=== PATIENT | male | born 1975 | race Two or more races ===

== ENCOUNTER 2018-10-04 08:55 | Inpatient (IN) | payer OTHER ==
[~2018-10-04] VITALS: Ht 188 cm; Wt 144.2 kg
[2018-10-04 09:22] LABS: BASOPHILS # (AUTO) 0.2 /CMM (0.0-0.2); BASOPHILS % (AUTO) 1.3 % (0.0-2.0); EOSINOPHILS % (AUTO) 0.3 % (0.0-6.0); HEMATOCRIT 36 % (39-51); HEMOGLOBIN 11.4 g/dL (13.5-17.5); LYMPHOCYTES # (AUTO) 0.7 /CMM (0.8-4.8); LYMPHOCYTES % (AUTO) 5.6 % (20.0-44.0); MEAN CORPUSCULAR HGB CONC 32 g/dl (31.0-36.0); MEAN CORPUSCULAR VOLUME 74 fL (80-96); MONOCYTES # (AUTO) 0.9 /CMM (0.1-1.30); MONOCYTES % (AUTO) 7.1 % (2.0-12.0); NEUTROPHILS # (AUTO) 10.4 /CMM (1.8-8.9); NEUTROPHILS % (AUTO) 85.7 % (43.0-81.0); PLATELET COUNT (AUTO) 405 /CMM (150-450); RED BLOOD CELL COUNT(AUTO) 4.84 MIL/uL (4.5-6.0); WHITE BLOOD COUNT (AUTO) 12.1 K/uL (4.3-11.0)
--- NOTE | 2018-10-04 09:34 | NUR ---
PT BROUGHT IN BY PARAMEDICS FOR WEAKNES AND RIGHT LEG SWELLING. PT HAS STAGE 4 SCRAL ULCER AND IS PARALYZED FROM WAIST DOWN. PT ALERT WITH ORIENTATION X 4/
[2018-10-04 09:44] LABS: CALCIUM, SERUM 8.9 mg/dL (8.5-10.1); CARBON DIOXIDE 27 mmol/L (21-32); CHLORIDE 94 mmol/L (98-107); CREATININE 0.8 mg/dL (0.6-1.3); GLUCOSE 112 mg/dL (74-106); POTASSIUM 3.5 mmol/L (3.5-5.1); SODIUM SERUM 129 mmol/L (136-145); UREA NITROGEN, BLOOD 10 mg/dL (7-18)
[2018-10-04 09:49] LABS: ALANINE AMINOTRANSFERASE 25 U/L (12-78); ALBUMIN 2.7 g/dL (3.4-5.0); ALKALINE PHOSPHATASE 147 U/L (46-116); ASPARTATE AMINOTRANSFERASE 27 U/L (15-37); BILIRUBIN,DIRECT 0.4 mg/dL (0.0-0.2); BILIRUBIN,TOTAL 0.9 mg/dL (0.2-1.0); TOTAL PROTEIN, SERUM 8.9 g/dL (6.4-8.2)
[2018-10-04 10:15] LABS: BAND % (MANUAL) 1 % (0.0-5.0); LYMPHOCYTES % (MANUAL) 6 % (16-48); MONOCYTES % (MANUAL) 3 % (0-11.0); NEUTROPHILS % (MANUAL) 90 (42-76)
[2018-10-04] MEDS ORDERED: PIPERACILLIN /TAZOBACTAM 3.375 G in IV D5W 50 ML IV ONE (11:00)
[2018-10-04] MEDS ORDERED: VANCOMYCIN 1 GM in IV D5W 250 ML IV ONE (11:00)
[2018-10-04] MEDS ORDERED: IV NS 0.9% 1,000 ML BAG IV ONE (11:00)
[2018-10-04] MEDS ORDERED: MAGNESIUM HYDROXIDE 30 ML UDC PO PRN (11:30)
[2018-10-04] MEDS ORDERED: Z GUARD REMEDY 2 OZ OINT TP PRN (11:30)
[2018-10-04] MEDS ORDERED: ZOLPIDEM TARTRATE 5 MG TABLET PO PRN (11:30)
[2018-10-04] MEDS ORDERED: MAG HYDROX/AL HYDROX/SIMETH 30 ML UDC PO PRN (11:30)
[2018-10-04] MEDS ORDERED: ACETAMINOPHEN 325 MG TABLET PO PRN (11:30)
[2018-10-04] MEDS ORDERED: ONDANSETRON HCL/PF 4 MG/2 ML VIAL IVP PRN (11:30)
--- NOTE | 2018-10-04 11:42 | NUR ---
URINE SAMPLE SENT TO [facility] BEING DONE
[2018-10-04 11:50] LABS: APPEARANCE,URINE Turbid (CLEAR); BILIRUBIN,URINE SMALL (NEGATIVE); BLOOD, URINE Moderate Ery/uL (NEGATIVE); COLOR,URINE Dark (YELLOW); KETONES,URINE 15 (NEGATIVE); LEUKOCYTE ESTERASE ,URINE Large (NEGATIVE); NITRITE, URINE Positive (NEGATIVE); PROTEIN,URINE >=300 mg/dl (NEGATIVE); UGLUCOSE Negative (NEGATIVE)
[2018-10-04 12:03] LABS: BACTERIA,URINE 3+ /HPF (None Seen); WBC,URINE TOO NUMEROUS TO COUN /HPF (0-3)
[2018-10-04 12:04] LABS: SQUAMOUS EPITHELIAL CELL,UR Rare /HPF (None Seen)
--- NOTE | 2018-10-04 12:04 | NUR ---
REPORT CALLED TO [facility] ON 3RD FLOOR PT GOING TO ROOM 322-1 ADMITTING MD COLEY FOR CELLULITIS
[2018-10-04] MEDS ORDERED: FEE PK DOSING 1 MIN EA MC ONE (12:18)
[2018-10-04 12:40] VITALS: BP 146/78
[2018-10-04] MEDS: IV NS 0.9% 1,000 ML IV PRN (13:08)
[2018-10-04] MEDS: ENOXAPARIN SODIUM 40 MG/0.4 ML DISP.SYRIN SQ SCH (13:21)
[2018-10-04] MEDS: VANCOMYCIN 1.25 GM in IV NS 0.9% 500 ML IV SCH ×2 (14:09→21:04)
--- NOTE | 2018-10-04 14:38 | NUR ---
ELECTRIC MULE DRIVER ADMITTING NOTES PATIENT ADMITTED TO UNIT VIA [facility] @ 1230. A/O X4. ABLE TO MAKE NEEDS KNOWN, DENIES PAIN OR DISCOMFORTS VOICED AT THIS TIME. PT ABLE TO SLIDE HIMSELF FROM GURNEY TO BED. PT WITH DIAGNOSIS OF CELLULITIS TO B/L LOWER EXTREMITIES. PT ORIENTED TO UNIT, ROOM AND STAFF. V/S TAKEN AND RECORDED. HEAD TO TOE ASSESSMENT DONE. PT WITH LAC G#18 INTACT AND PATENT. ABDOMEN SOFT, NON-TENDER AND NON DISTENDED WITH POSITIVE BOWEL SOUNDS. LUNGS IS CLEAR ON AUSCULTATION. PHOTOS OF SKIN ISSUES TAKEN AND FILED ON CHART. PT IS PARALYZED FROM WAIST DOWN. PT PLACED ON TELEMONITORING WITH READINGS SHOWING SINUS TACHYCARDIA WITH HR B/W 100-115, NO C/O CARDIAC DISTRESS VOICED. SAFETY MEASURES INITIATED. BED PLACED IN LOW LOCKED POSITION WITH SIDE RAILS UP X2. CALL LIGHT PLACED WITHIN EASY REACH OF PT. WILL CONTINUE TO MONITOR AND ASSES PT. Addendum: 10/04/18 at 1846 by GRACIA GARDNER RN ADDENDUM: PT WITH MORALES CATHETER IN PLACE AND PATENT , DRAINING ADEQUATE CLEAR YELLOW URINE TO BEDSIDE URINARY BAG.
[2018-10-04 16:00] VITALS: BP 142/78
[2018-10-04] MEDS: PIPERACILLIN /TAZOBACTAM 3.375 G in IV D5W 50 ML IV SCH ×2 (16:59→23:17)
--- NOTE | 2018-10-04 18:08 | NUR ---
RN NOTES RIGHT FOOT WOUND SPECIMEN COLLECTED FOR CULTURE AND CALLED LAB FOR SUPERVISOR CD AREA.
--- NOTE | 2018-10-04 18:51 | NUR ---
NEUROSURGICAL PHYSICIAN ASSISTANT CLOSING NOTES PT IN BED RESTING AT MODERATE HIGH BACKREST POSITION. A/O X4. ABLE TO VERBALIZED NEEDS. ON ROOM AIR, BREATHING EVEN AND UNLABORED. TELEMONITORING SHOWS SINUS TACH WITH HR B/W 100-115. DRESSING TO B/L FOOT C/D/I. IV ACCESS ON LAC PATENT AND INTACT, IVF INFUSING ORDERED, NO S/S OF INFILTRATIONS NOTED. MORALES IN PLACE, PATENT AND DRAINING TO GRAVITY. ALL NEEDS AND CARE AATENDED WELL. KEPT BED IN LOW/LOCKED POSITION WITH CALL LIGHT IN REACH. BILATERAL UPPER SIDE RAILS IN PLACE. WILL ENDORSE TO CORONER TRANSPORT TECHNICIAN NURSE FOR MARY.
[2018-10-04 20:00] VITALS: BP 125/55
[2018-10-04] MEDS: HYDROCODONE/APAP 10/325MG 1 EA TABLET PO PRN (20:30)
[2018-10-05] VITALS: BP 130/80
[2018-10-05 04:00] VITALS: BP 119/71
[2018-10-05] MEDS: PIPERACILLIN /TAZOBACTAM 3.375 G in IV D5W 50 ML IV SCH ×4 (05:51→21:50)
[2018-10-05] MEDS: VANCOMYCIN 1.25 GM in IV NS 0.9% 500 ML IV SCH (05:51)
--- NOTE | 2018-10-05 06:50 | NUR ---
UPHOLSTERY SEWER NOTES AWAKE & RESPONSIVE. NOT IN ANY DISTRESS. NO SOB NOTED. DENIES ANY PAIN OR DISCOMFORT AT THIS TIME. ON TELE SR @ 100 WITH IVF INFUSING WELL. AM CARE DONE. MONITORED ACCORDINGLY. CALL LIGHT WITHIN REACH. BED IN LOWEST POSITION. SR UP X2 ON FOR SAFETY. WILL ENDORSE TO NEXT SHIFT.
--- NOTE | 2018-10-05 07:10 | NUR ---
KENNEL TECHNICIAN. PT TELE SINUS 93. PT A&0X3, AWAKE AND RESTING IN BED. PT TOLERATING ROOM AIR WITHOUT DISTRESS. PT DENIES PAIN. PT WITH IVC AT L AC INTACT AND OPERATIONAL WITH IVF/IVAB PER RX. PT ASSISTED WITH REPOSITIONING. PT WITH BI LAT LOWER EXT DRESSINGS CLEAN AND INTACT, R LOWER LEG WITH EDEMA +2, FOOT +3 WARM TO THE TOUCH. LEFT LEG WITH EDEMA +1. PT BED IN LOWEST LOCKED POSITION WITH HANDRAISX2 AND CALL ANTOINE AND BELONGINGS WITHIN REACH. PT BRIEFED ON TODAY'S POC AND IS WITHOUT CONCERN OR COMPLAINT AT THIS TIME.
[2018-10-05 07:17] LABS: BASOPHILS % (AUTO) 0.3 % (0.0-2.0); EOSINOPHILS % (AUTO) 1.1 % (0.0-6.0); HEMATOCRIT 28 % (39-51); LYMPHOCYTES # (AUTO) 0.8 /CMM (0.8-4.8); LYMPHOCYTES % (AUTO) 10.7 % (20.0-44.0); MEAN CORPUSCULAR HGB CONC 33 g/dl (31.0-36.0); MEAN CORPUSCULAR VOLUME 73 fL (80-96); MONOCYTES # (AUTO) 0.7 /CMM (0.1-1.30); MONOCYTES % (AUTO) 9.7 % (2.0-12.0); NEUTROPHILS # (AUTO) 5.6 /CMM (1.8-8.9); NEUTROPHILS % (AUTO) 78.2 % (43.0-81.0); PLATELET COUNT (AUTO) 342 /CMM (150-450); RED BLOOD CELL COUNT(AUTO) 3.75 MIL/uL (4.5-6.0); WHITE BLOOD COUNT (AUTO) 7.1 K/uL (4.3-11.0)
[2018-10-05 07:26] LABS: CALCIUM, SERUM 7.8 mg/dL (8.5-10.1); CREATININE 0.7 mg/dL (0.6-1.3); MAGNESIUM 1.5 mg/dL (1.8-2.4); PHOSPHORUS 3.2 mg/dL (2.5-4.9); POTASSIUM 3.3 mmol/L (3.5-5.1)
[2018-10-05 08:00] VITALS: BP 110/55
[2018-10-05] MEDS: ENOXAPARIN SODIUM 40 MG/0.4 ML DISP.SYRIN SQ SCH (08:25)
[2018-10-05] MEDS: IV NS 0.9% 1,000 ML IV PRN (08:51)
[2018-10-05 09:11] LABS: BAND % (MANUAL) 3 % (0.0-5.0); LYMPHOCYTES % (MANUAL) 14 % (16-48); MONOCYTES % (MANUAL) 11 % (0-11.0); NEUTROPHILS % (MANUAL) 72 (42-76)
[2018-10-05] MEDS ORDERED: Magnesium 1GM/D5W 100ML PREMIX PIGGYBACK IV ONE (09:30)
[2018-10-05] MEDS ORDERED: POTASSIUM CHLORIDE 20 MEQ TAB.PRT.SR PO SCH (10:00)
[2018-10-05] MEDS ORDERED: MGSO4/D5W 100 ML IV SCH (10:00)
--- NOTE | 2018-10-05 13:30 | NUR ---
OS AT BEDSIDE FOR BI.LAT FEET DEBRIDEMENT . WOUND CARE COMPLETED BY .
[2018-10-05 16:00] VITALS: BP 102/59
[2018-10-05] MEDS: VANCOMYCIN 1.25 GM in IV D5W 500 ML IV SCH (16:26)
[2018-10-05] MEDS ORDERED: AMLO5TAB9 PO (16:55)
[2018-10-05] MEDS ORDERED: FERR325T23 PO (16:55)
[2018-10-05] MEDS ORDERED: LISI-603 PO (16:55)
[2018-10-05] MEDS ORDERED: BACL20TA PO (16:55)
[2018-10-05] MEDS ORDERED: GABA-534 PO (16:55)
[2018-10-05] MEDS: HYDROCODONE/APAP 5/325MG 1 EACH TABLET PO PRN (17:01)
--- NOTE | 2018-10-05 18:26 | NUR ---
MSRN. PT A&0X4, USING PHONE IN BED. PT TOLERATING ROOM AIR WITHOUT DISTRESS. PT REPORTS ADEQUATE PAIN MANAGEMENT AT THIS TIME. PT WITH IVC AT L AC INTACT AND OPERATIONAL WITH IVAB PER RX. PT WITH BI LAT LOWER EXT DRESSINGS CLEAN AND INTACT. PT BED IN LOWEST LOCKED POSITION WITH HANDRAILSX2 AND CALL ANTOINE AND BELONGINGS WITHIN REACH. ALL DAY NURSE DUTIES ATTENDED TO AND PT IS WITHOUT FURTHER COMPLAINT AT THIS TIME. WILL ENDORSE TO NIGHT NURSE AT BEDSIDE FOR MARY.
--- NOTE | 2018-10-05 19:53 | NUR ---
MS/RN OPENING NOTES RECEIVED PATIENT IN BED, RESTING COMFORTABLY IN BED, ALERT, ORIENTED X4, DENIES PAIN, CALM AND COOPERATIVE TO CARE, REQUIRE ASSISTANCE IN ADLS PATIENT CAN NOT FEEL SENSATION FROM WAIST DOWN, SKIN WARM TO TOUCH, HAD ONE BM REPORTED. WITH MULTIPLE SKIN ISSUES CELLULITIS ON BLE, TAKES REGULAR DIET, ON IV ABT THERTAPHY. DEBRIDEMENT DONE BLE WILL MONITOR. RECEIVED ENDORSEMENT FROM AM RN FOR MARY. IV GAUGE ON LEFT ACWILL CONTINUE TO MONITOR. BED LOCKED, CALL LIGHTS WITHIN REACH.
[2018-10-05 19:56] VITALS: BP 128/71
[2018-10-05 19:57] VITALS: BP 128/71
[2018-10-06] MEDS: VANCOMYCIN 1.25 GM in IV D5W 500 ML IV SCH ×3 (00:04→15:34)
[2018-10-06] MEDS: HYDROCODONE/APAP 10/325MG 1 EA TABLET PO PRN ×2 (00:11→15:57)
--- NOTE | 2018-10-06 00:15 | NUR ---
MS/RN NOTES PATIENT OBSERVED WITH FACIAL GRIMACE, MOANING, AND REPORTED PAIN IN LOWER EXTREMITIES, PAIN MEDICATION NORCO 10-325 MG PO GIVEN BY MOUTH, WILL MONITOR RELIEF.
--- NOTE | 2018-10-06 01:00 | NUR ---
RFA GAUGE 20 IV INSERTED, PATIENT TOLERATED .
[2018-10-06] MEDS: PIPERACILLIN /TAZOBACTAM 3.375 G in IV D5W 50 ML IV SCH ×4 (04:00→23:20)
--- NOTE | 2018-10-06 06:38 | NUR ---
MS/RN NOTES PATIENT SLEPT INTERMITENTLY, COOPERATIVE, PARTICIPATIVE TO CARE, RESPIRATIONS EVEN AND UNLABORED, PAIN CONTROLLED, REPOSITIONED FOR COMFORT, IN ON RFA GAUGE 20 PATENT, NO S/S OF ADVERSE CHANGES NOTED, CALM AND COOPERATIVE. BED LOCKED, ABLE TO DRINK ADEQUATE FLUID ORALLY. ON IV ANTIBIOTIC FOR CELLULITIS. BED LOCKED. CALL LIGHTS WITHIN REACH. WILL MONITOR.
[2018-10-06 07:25] LABS: CALCIUM, SERUM 7.9 mg/dL (8.5-10.1); CREATININE 0.7 mg/dL (0.6-1.3); POTASSIUM 3.9 mmol/L (3.5-5.1)
[2018-10-06 08:00] VITALS: BP 119/59
[2018-10-06] MEDS: ENOXAPARIN SODIUM 40 MG/0.4 ML DISP.SYRIN SQ SCH (09:00)
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
--- NOTE | 2018-10-06 14:39 | NUR ---
Social service consult requested by Og Hooper for homelessness. Pt is a 42-year-old male admitted to [facility] due to multiple wounds and bilateral lower extremity cellulitis per H&P. Pt has a history of amphetamine use and tobacco use. Pt reports no emergency contacts at this time. Pt reports he has been living on the streets however would not report for how long, per consult pt reported being homeless for the last four months. Pt is alert and oriented x4. Sw discussed [facility] shelters, pt-accepted resource. Sw spoke with pt regarding his drug use, pt reports to using meth and smoking cigarettes, social work offered pt substance abuse referrals, pt accepted. When discussing possible discharge in the future pt reported he is not sure. Pt accepted both [facility] retirement and substance abuse resources, health social work professor left paperwork with pt at bedside. Social work will remain available if needed.
[2018-10-06] MEDS: IV NS 0.9% 1,000 ML IV PRN (15:34)
[2018-10-06] MEDS: DAKINS QUARTER STRENGTH (0.125%) 480 ML BOTTLE TOP SCH (15:34)
[2018-10-06 15:55] VITALS: BP 121/70
--- NOTE | 2018-10-06 19:10 | NUR ---
PATIENT A/OX4, RESPIRATIONS EVEN AND UNLABORED, PAIN MEDS GIVEN PRIOR WOUND CARE, REPOSITIONED FOR COMFORT, IN ON RFA GAUGE 20 PATENT. BED LOCKED,LOWEST POSITION. SIDE RAILS UPX2.BED LOCKED. CALL LIGHTS WITHIN REACH . WILL ENDORSE TO NEXT SHIFT
--- NOTE | 2018-10-06 19:25 | NUR ---
MS/RN NOTES RECEIVED PT. LYING IN BED. PT. IS AWAKE, ALERT AND ORIENTED X4. BREATHING EVEN AND UNLABORED ON ROOM AIR. NO SOB, RESPIRATORY DISTRESS OR COMPLAINTS OF PAIN NOTED AT THIS TIME. PT. WITH RIGHT FOREARM 20 GAUGE PERIPHERAL IV PRESENT, PATENT AND INTACT ADMINISTERING TO PT. NS @ 75ML/HR. PT. WITH MORALES CATHETER PRESENT, PATENT AND INTACT DRAINING CLEAR PUSHPA URINE. PER DAYSHIFT NURSE PT. IS S/P BILATERAL LOWER EXTREMITY DEBRIDEMENT. PT. WITH BILATERAL LOWER EXTREMITY POST OP DRESSING PRESENT, CLEAN, DRY AND INTACT. NO BLEEDING OR DRAINAGE NOTED. PT. BILATERAL LOWER EXTREMITIES ELEVATED ON PILLOWS. BED LOCKED AND IN LOWEST POSITION, SIDE RAILS UP X2, CALL LIGHT WITHIN REACH, WILL CONTINUE TO MONITOR.
[2018-10-06 20:00] VITALS: BP 129/77
[2018-10-07] MEDS: VANCOMYCIN 1.25 GM in IV D5W 500 ML IV SCH ×3 (00:38→16:12)
[2018-10-07] MEDS: PIPERACILLIN /TAZOBACTAM 3.375 G in IV D5W 50 ML IV SCH ×2 (05:50→11:39)
[2018-10-07] MEDS: HYDROCODONE/APAP 5/325MG 1 EACH TABLET PO PRN ×2 (06:06→21:26)
--- NOTE | 2018-10-07 06:53 | NUR ---
MS/RN NOTES PT. IS LYING IN BED RESTING. BREATHING EVEN AND UNLABORED ON ROOM AIR. NO SOB, RESPIRATORY DISTRESS OR COMPLAINTS OF PAIN NOTED AT THIS TIME. PT. WITH RIGHT FOREARM 20 GAUGE PERIPHERAL IV PRESENT, PATENT AND INTACT ADMINISTERING TO PT. NS @ 75ML/HR. PT. WITH MORALES CATHETER PRESENT, PATENT AND INTACT DRAINING CLEAR PUSHPA URINE. PT. WITH BILATERAL LOWER EXTREMITY POST OP DRESSING PRESENT, CLEAN, DRY AND INTACT. NO BLEEDING OR DRAINAGE NOTED. PT. BILATERAL LOWER EXTREMITIES ELEVATED ON PILLOWS. ALL PT. NEEDS MET. PT. REFUSING TO BE TURNED OR REPOSITIONED AT THIS TIME. BED LOCKED AND IN LOWEST POSITION, SIDE RAILS UP X2, CALL LIGHT WITHIN REACH, WILL ENDORSE TO DAYSHIFT NURSE FOR CONTINUITY OF CARE.
[2018-10-07 08:00] LABS: CALCIUM, SERUM 7.9 mg/dL (8.5-10.1); CREATININE 0.6 mg/dL (0.6-1.3); POTASSIUM 3.5 mmol/L (3.5-5.1)
[2018-10-07] MEDS: ENOXAPARIN SODIUM 40 MG/0.4 ML DISP.SYRIN SQ SCH (08:57)
[2018-10-07] MEDS: DAKINS QUARTER STRENGTH (0.125%) 480 ML BOTTLE TOP SCH (08:58)
[2018-10-07] MEDS: IV NS 0.9% 1,000 ML IV PRN (15:14)
[2018-10-07 16:00] VITALS: BP 129/76
--- NOTE | 2018-10-07 17:09 | NUR ---
DR. GUERRERO IN,DR. CROWELL'S TUBE SIZER AND CUTTER OPERATOR WELL MARCELLE FINE NURSE.
[2018-10-07] MEDS: LACTOBACILLUS RHAMNOSUS GG 1 EACH CAP.SPRINK PO SCH (18:20)
[2018-10-07] MEDS: LEVOFLOXACIN (750 MG) 750 MG TABLET PO SCH (18:20)
[2018-10-07] MEDS: CEFEPIME 1 GM in IV D5W 50 ML IV SCH (20:09)
[2018-10-07 23:27] VITALS: BP 131/78
[2018-10-08] MEDS: IV NS 0.9% 1,000 ML IV PRN ×2 (06:18→23:01)
[2018-10-08] MEDS: DAKINS QUARTER STRENGTH (0.125%) 480 ML BOTTLE TOP SCH (06:19)
--- NOTE | 2018-10-08 07:45 | NUR ---
ms contracts intern closing notes pt back to rest after morning care done as well his wound care . stable asher the night and slept well. all due meds given and all needs met. ivf still infusing on his right forearm. no redness noted. kept him warm and comfortable at all times. isolation precaution implemented and onbserved. endorse.
[2018-10-08 08:00] VITALS: BP 112/58
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
[2018-10-08] MEDS: CEFEPIME 1 GM in IV D5W 50 ML IV SCH ×2 (08:40→20:29)
[2018-10-08] MEDS: LACTOBACILLUS RHAMNOSUS GG 1 EACH CAP.SPRINK PO SCH ×2 (08:42→17:46)
[2018-10-08] MEDS: ENOXAPARIN SODIUM 40 MG/0.4 ML DISP.SYRIN SQ SCH (08:46)
[2018-10-08] MEDS ORDERED: LEVO750T21 PO (08:47)
[2018-10-08] MEDS ORDERED: CEFE1PIG3 IV (08:47)
[2018-10-08 09:09] LABS: BASOPHILS % (AUTO) 0.8 % (0.0-2.0); EOSINOPHILS % (AUTO) 6.6 % (0.0-6.0); HEMATOCRIT 31 % (39-51); HEMOGLOBIN 9.9 g/dL (13.5-17.5); LYMPHOCYTES # (AUTO) 1.1 /CMM (0.8-4.8); LYMPHOCYTES % (AUTO) 27.8 % (20.0-44.0); MEAN CORPUSCULAR HGB CONC 32 g/dl (31.0-36.0); MEAN CORPUSCULAR VOLUME 74 fL (80-96); MONOCYTES # (AUTO) 0.2 /CMM (0.1-1.30); MONOCYTES % (AUTO) 4.9 % (2.0-12.0); NEUTROPHILS # (AUTO) 2.3 /CMM (1.8-8.9); NEUTROPHILS % (AUTO) 59.9 % (43.0-81.0); PLATELET COUNT (AUTO) 522 /CMM (150-450); RED BLOOD CELL COUNT(AUTO) 4.14 MIL/uL (4.5-6.0); WHITE BLOOD COUNT (AUTO) 3.9 K/uL (4.3-11.0)
[2018-10-08 09:18] LABS: CALCIUM, SERUM 8.6 mg/dL (8.5-10.1); CREATININE 0.8 mg/dL (0.6-1.3); POTASSIUM 3.8 mmol/L (3.5-5.1)
--- NOTE | 2018-10-08 10:00 | NUR ---
RN NOTES PATIENT GOING TO D/C SNF PER MD ORDER.
--- NOTE | 2018-10-08 13:00 | NUR ---
RN NOTES BUTTOCK WOUND DEBRIDEMENT DONE BY TAMMY GATES. CALL LIGHT WITHIN TO REACH. NEEDS ATTENED AND RENDERED, CONTINUED MONITORING.
--- NOTE | 2018-10-08 14:11 | NUR ---
SW spoke to nurse case manager Consuelo Mccrary regarding pt's discharge plan. Per Consuelo Mccrary pt. is accepted to [facility] located at [address] [place] [address] [place] [address] .
[2018-10-08 16:07] VITALS: BP 146/79
[2018-10-08] MEDS: LEVOFLOXACIN (750 MG) 750 MG TABLET PO SCH (17:46)
--- NOTE | 2018-10-08 18:30 | NUR ---
RN NOTES PATIENT STABLE, CALLED SNF FOR DISCHARGE REPORT BUT NOT BED AVAILABLE . PER SNF CHARGE NURSE WILL NOTIFY WHEN BED AVAILABLE. PATIENT RESTING IN THE BED, REFUSED PAIN . PATIENT TURN AND REPOSTION SELF IN THE BED. ENDORSED ONCOMING NURSE FOR PLAN OF CARE.
--- NOTE | 2018-10-08 19:49 | NUR ---
RN MS OPENING NOTES RECEIVED PATIENT IN BED AWAKE, ALERT AND ORIENTED X4, VERBALLY RESPONSIVE, ABLE TO MAKE NEEDS KNOWN. BREATHING EVEN AND UNLABORED. NO SOB NOTED. TOLERATING ROOM AIR. DENIES ANY PAIN OR DISCOMFORT . NO FACIAL GRIMACING. IV ON RIGHT FOREARM INTACT AND PATENT. SKIN DRY AND WARM TO TOUCH. AFEBRILE. ALL OTHER NEEDS ATTENDED TO. SAFETY MEASURES IN PLACE. CALL LIGHT WITHIN REACH. WILL CONTINUE TO MONITOR. ANTICIPATING DISCHARGE TO SNF.
[2018-10-08 20:00] VITALS: BP 146/90
[2018-10-09] MEDS: HYDROCODONE/APAP 5/325MG 1 EACH TABLET PO PRN (00:18)
--- NOTE | 2018-10-09 01:20 | NUR ---
RN MS NOTES CALLED [facility] TO CHECK IF BARIATRIC BED WAS DELIVERED. PER OPAL LANDON, THE BED HAS NOT ARRIVED YET.
--- NOTE | 2018-10-09 06:53 | NUR ---
RN MS CLOSING NOTES PATIENT RESTING IN BED. NO ACUTE CHANGES THROUGHOUT SHIFT. PATIENT UNABLE TO GO TO SNF DUE TO BARIATRIC BED NOT AVAILABLE. BREATHING EVEN AND UNLABORED. NO SOB NOTED. TOLERATING ROOM AIR. DENIES ANY PAIN OR DISCOMFORT . NO FACIAL GRIMACING. IV ON RIGHT FOREARM INTACT AND PATENT WITH NS RUNNING AT 75ML/HR. SKIN DRY AND WARM TO TOUCH. AFEBRILE. DRESSINGS CHANGED. ALL OTHER NEEDS ATTENDED TO. SAFETY MEASURES IN PLACE. CALL LIGHT WITHIN REACH. WILL ENDORSE TO ONCOMING NURSE FOR MARY. .
--- NOTE | 2018-10-09 07:30 | NUR ---
MS RN Opening Notes Patient asleep, resting in bed. Semi-Fowlers position. Alert and oriented x4, able to make needs known. No complaints of pain at this time. Respirations even and unlabored on room air, no acute distress noted. Peripheral IV to the right forearm 20 gauge, intact, patent and infusing fluids as ordered. Peña catheter in place, intact, patent and draining clear, yellow urine. Dressings to both lower extremities noted in place, clean, dry and intact. Updated patient on current plan of care and safety measures. Safety and fall precautions in place: bed in lowest and locked position, side rails up x2, bed alarm on, call light and personal possessions within reach. Will continue to monitor and intervene as needed.
[2018-10-09 08:00] VITALS: BP 135/78
[2018-10-09 08:24] LABS: CALCIUM, SERUM 8.7 mg/dL (8.5-10.1); CREATININE 0.7 mg/dL (0.6-1.3); POTASSIUM 4.2 mmol/L (3.5-5.1)
[2018-10-09] MEDS: ENOXAPARIN SODIUM 40 MG/0.4 ML DISP.SYRIN SQ SCH (08:47)
[2018-10-09] MEDS: LACTOBACILLUS RHAMNOSUS GG 1 EACH CAP.SPRINK PO SCH ×2 (08:48→17:37)
[2018-10-09] MEDS: CEFEPIME 1 GM in IV D5W 50 ML IV SCH (08:48)
[2018-10-09] MEDS: DAKINS QUARTER STRENGTH (0.125%) 480 ML BOTTLE TOP SCH (08:49)
[2018-10-09 14:00] VITALS: BP 161/98
--- NOTE | 2018-10-09 16:00 | NUR ---
Called report to [facility] . RN Rn Patient Care Lexie. Patient assigned for 1900 pick-up from [facility]. Bariatric bed to be available at 1900, per CM arranging with Herb (from facility). Will endorse care to EMT or retail shift leader RN for continuity of care.
--- NOTE | 2018-10-09 17:00 | NUR ---
Wound care completed on sacral wound as ordered. Dressing clean, dry and intact to site. Discharge photos of sacral wound completed by CASE Peña yesterday in anticipation of discharge. Noted. For bilateral lower extremities, photos of ulcerations and skin taken yesterday (10/08/18) ACSE Peña in anticipation of discharge to facility. Dressing changed as ordered on 10/08/18. Per ordered from Dr. Fink's notes and orders, multi layer compression dressing to be changed every 72 hours. Therefore, no follow-up photos of sites noted for 10/09/18. Dressing currently clean, dry and intact. Will endorse care and instructions to SNF RN and receiving facility.
[2018-10-09] MEDS: LEVOFLOXACIN (750 MG) 750 MG TABLET PO SCH (17:37)
--- NOTE | 2018-10-09 18:59 | NUR ---
Preparing patient for discharge. Patient dressed in gown (no clothing available) with personal belongings. Peña catheter emptied. Peripherial IV to the right wrist 22 gauge dislodged. Catheter tip intact. No redness, bleeding or swelling of the site noted. Will update EMT's on access site changes for patient.
--- NOTE | 2018-10-09 19:22 | NUR ---
MS RN Closing Notes Patient awake, resting in bed. Semi-Fowlers position. Alert and oriented x4, able to make needs known. No complaints of pain at this time. Respirations even and unlabored on room air, no acute distress noted. Peripheral IV to the right wrist 22 gauge removed for discharge. Peña catheter in place, intact, patent and draining clear, yellow urine. Dressings to both lower extremities noted in place, clean, dry and intact. Dressing to sacrum (left) clean, dry and intact. Patient prepped for discharge. All forms and instructions signed. Copies in chart. Skin assessment completed, photos in chart. Updated patient on current plan of care and safety measures. Safety and fall precautions in place: bed in lowest and locked position, side rails up x2, bed alarm on, call light and personal possessions within reach. Will endorse care to CASE Reagan to discharge patient to SNF. Pick-up time for patient 1900.
[2018-10-09 20:31] VITALS: BP 142/88
--- NOTE | 2018-10-09 20:39 | NUR ---
DISCHARGED Patient has been cleared for d/c by MD. Transport arrived, patient left via ambulance in stable condition. Personal belongings send with the patient upon discharged.
== END 2018-10-09 20:39 | DRG 710 ==
LOC: ER 08:59 → TELE 11:59 → MED 10-05 10:30
PROVIDERS: ADMIT Nurse Practitioner Acute Care; ATTEND Family Medicine
PROC: 0JBQ0ZZ Excision of Right Foot Subcutaneous Tissue and Fascia, Open Approach (ICD-10-PCS; principal; 2018-10-05)
PROC: 0JBR0ZZ Excision of Left Foot Subcutaneous Tissue and Fascia, Open Approach (ICD-10-PCS; principal; 2018-10-05)
PROC: 0KBP0ZZ Excision of Left Hip Muscle, Open Approach (ICD-10-PCS; 2018-10-08)
DX: A41.9 Sepsis, unspecified organism (principal); L89.324 Pressure ulcer of left buttock, stage 4; E46 Unspecified protein-calorie malnutrition; E66.01 Morbid (severe) obesity due to excess calories; D68.59 Other primary thrombophilia; L89.524 Pressure ulcer of left ankle, stage 4; L89.514 Pressure ulcer of right ankle, stage 4; E87.1 Hypo-osmolality and hyponatremia; G82.20 Paraplegia, unspecified; L03.116 Cellulitis of left lower limb; L03.115 Cellulitis of right lower limb; M86.9 Osteomyelitis, unspecified; F19.10 Other psychoactive substance abuse, uncomplicated; N39.0 Urinary tract infection, site not specified; F15.90 Other stimulant use, unspecified, uncomplicated; F17.210 Nicotine dependence, cigarettes, uncomplicated; Z68.41 Body mass index [BMI] 40.0-44.9, adult; B96.5 Pseudomonas (aeruginosa) (mallei) (pseudomallei) as the cause of diseases classified elsewhere; B95.0 Streptococcus, group A, as the cause of diseases classified elsewhere; Z59.0 Homelessness; Z83.3 Family history of diabetes mellitus; B96.20 Unspecified Escherichia coli [E. coli] as the cause of diseases classified elsewhere; D50.9 Iron deficiency anemia, unspecified; D72.819 Decreased white blood cell count, unspecified; E86.1 Hypovolemia; I10 Essential (primary) hypertension
CPT/HCPCS: 36415; 71045-TC; 73630-TC; 80048-TC; 80076-TC; 80202-TC; 81000-TC; 83605-TC; 83735-TC; 84100-TC; 84484-TC; 85025-TC; 85730-TC; 87040-TC; 87070-TC; 87081-TC; 87086-TC; 87186-TC; 93971-TC; A6253; A6402; A6403; G0378; J0692; J1650; J2543; J3370; J3475; J7030; J7040; J7060